=== PATIENT | female | born 1990 | race Caucasian/White ===

== ENCOUNTER 2017-10-24 23:24 | Inpatient (IN) | payer OTHER ==
[~2017-10-24] VITALS: Ht 160 cm; Wt 72.6 kg
[~2017-10-24 23:24] MED LIST: CITA-128 PO
[2017-10-24] MEDS ORDERED: FAMOTIDINE(*) 20MG/50ML PREMIX 50 ML IVPB PRN (23:25)
[2017-10-24] MEDS ORDERED: LIDOCAINE/SOD BICARB 8.4% SYR SC PRN (23:25)
[2017-10-24] MEDS ORDERED: ONDANSETRON 4 MG/2 ML VIAL IVP PRN (23:25)
[2017-10-24] MEDS ORDERED: cefOXitin/DEX(*) 2GM/50ML PREM 50 ML IVPB PRN (23:25)
[2017-10-24] MEDS ORDERED: LIDOCAINE 1% LOCAL 300 MG/30ML INJ PRN (23:25)
[2017-10-24] MEDS ORDERED: OXYTOCIN 30 UNIT/D5LR 500 ML 500 ML IV PRN (23:25)
[2017-10-24] MEDS ORDERED: DLR(*) 1000 ML BAG 1,000 ML IV PRN (23:25)
[2017-10-24] MEDS ORDERED: METOCLOPRAMIDE 10 MG/2 ML SDV IVP PRN (23:25)
[2017-10-25] VITALS (10 sets, daily range): BP systolic 90–119; BP diastolic 50–84; BMI 28.3
[2017-10-25 00:09] LABS: PLATELET COUNT, AUTOMATED 214 K/uL (150-450)
[2017-10-25] MEDS ORDERED: FAMO20TA28 PO (04:56)
[2017-10-25] MEDS ORDERED: PREN-127 PO (04:56)
[2017-10-25] MEDS: LR(*) 1000 ML BAG 1,000 ML IV PRN ×3 (06:51→13:05)
[2017-10-25] MEDS ORDERED: OXYTOCIN 30 UNIT/D5LR 500 ML 500 ML IV PRN ×2 (07:24→16:59)
[2017-10-25] MEDS ORDERED: TERBUTALINE SULF 1 MG/ML VIAL SUBQ PRN (07:25)
[2017-10-25] MEDS ORDERED: LIDOCAINE/PF 2% 200MG/10ML AMP 200 MG/10 ML AMPUL EPI PRN (07:30)
[2017-10-25] MEDS ORDERED: fentaNYL CITR 100 MCG/2 ML AMP IT PRN (07:30)
[2017-10-25] MEDS ORDERED: LIDO/EPI 2% MPF 1:200,000 20ML EPI PRN (07:30)
[2017-10-25] MEDS ORDERED: BUPIVACAINE 0.5% INJ 30ML VIAL EPI PRN (07:30)
[2017-10-25] MEDS ORDERED: FENTANYL/ROPIVACAINE 100 ML BAG EPI PRN (07:30)
[2017-10-25] MEDS ORDERED: BUPIVACAINE 0.25% MPF INJ EPI PRN (07:30)
[2017-10-25] MEDS ORDERED: EPIDURAL KEYS XX PRN (09:00)
[2017-10-25] MEDS: fentaNYL CITR 100 MCG/2 ML AMP IVP PRN ×2 (10:33→11:41)
[2017-10-25] MEDS ORDERED: NS(*) 0.9% 1000 ML BAG 1,000 ML ONE (10:36)
[2017-10-25] MEDS ORDERED: TERBUTALINE SULF 1 MG/ML VIAL ONE (13:34)
--- NOTE | 2017-10-25 13:47 | History & Physical ---
History of Present Illness Age of Patient: 27 : 2 Para or TPAL: 0 EDC per LMP: Oct 25, 2017 Estimated Gestational Age: 39 Chief Complaint loss of fluid History of Present Illness Presented with SROM last night and was 2 cm. Progressed to 4 cm by this am but contractions spaced out. Starting pitocin upon my arrival. uncomplicated. Past Medical, Surgical, Family and Obstetric Histories reviewed. Please see ACOG chart. History Obstetrical History: one prior SAB Allergies: Coded Allergies: No Known Allergies (Verified Allergy, Mild, 08/13/08) Med Rec Home Meds Reported Medications Famotidine (PEPCID) 20 Mg Tablet, 20 MG PO QDAY, #10 TAB 10/25/17 Vits W-Ca,Fe,Fa(<1MG) ( VITAMINS) 1 Each Tablet, 1 EACH PO DAILY, TAB 10/25/17 Discontinued Reported Medications Citalopram Hydrobromide (Citalopram Hbr) 20 Mg Tablet, 10 MG PO DAILY, 0 Refills 08/13/08 Review of Systems All Systems Reviewed/Normal: Yes, Except as Noted Exam General Exam Vital Signs Vital Signs Date Time Temp Pulse Resp B/P (MAP) Pulse Ox O2 Delivery O2 Flow Rate FiO2 10/25/17 00:00 98.1 67 16 115/77 (90) 94 Room Air General Apperance: Alert/Awake/No Acute Distress Eyes: Normal Extraocular Movement & Vison Cardiovascular: Regular Rate and Rhythm Respiratory: No Respiratory Distress Abdomen: Soft, Non-Tender, Non-Distended, Gravid - Non-Tender Psychological: Alert & Oriented X3, Appropriate Mood & Affect Cervical Dialation: 4 Cervical Effacement (%): 80 Cervical Consistency: Soft Cervical Position: Anterior Station: -2 Presentation: Vertex Fetus Heart Tone Variabilty: Moderate FHT Category: I Medical Decision Making Data Points Result Diagram: 10/24/17 0000 VTE Prophylasis: Adult Deep Vein Thrombosis/Pulmonary: No Pharmacological Contraindicati: Pt at Low Risk for VTE Mechanical Contraindications: Pt at Low Risk for VTE 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 Will augment with Pitocin BRODY TERAN MD Oct 25, 2017 13:47
--- NOTE | 2017-10-25 13:51 | Labor Progress Note ---
Labor Subjective Progress Notes Subjective Pt was having moderate variable decelerations with contraction, variable type. I placed IUPC and started amnioinfusion to help resolve. It wasn't helping but contractions intense and epidural placed. Variable decelerations seemed to worsen after and descent and 7 cm dilation, 0 station. Position changes, O2 and Pitocin stopped. Ultimately terbutaline given and contractions stopped and FHTs improved. All the while palpable movement and accelerations noted with scalp stim. Labor Objective Vital Signs Vital Signs Date Time Temp Pulse Resp B/P (MAP) Pulse Ox O2 Delivery O2 Flow Rate FiO2 10/25/17 00:00 98.1 67 16 115/77 (90) 94 Room Air Other Result Diagram: 10/24/17 0000 Assessment and Plan Problems: (1) Labor without complication Assessment & Plan: Ultimately decided on plan for continued waiting without stimulation and see if severe variables happen again with spontaneous contractions. If so, she is only 7 cm and will need abdominal delivery. They are in agreement with this plan. BRODY TERAN MD Oct 25, 2017 13:51
[2017-10-25] MEDS ORDERED: OXYTOCIN 10 UNIT/ML SDV ONE ×2 (15:57→15:58)
[2017-10-25] MEDS ORDERED: MORPHINE PF 5 MG/10 ML AMP ONE (15:57)
[2017-10-25] MEDS ORDERED: KETAMINE HCL 500 MG/5 ML VIAL ONE (16:12)
[2017-10-25] MEDS ORDERED: DLR(*) 1000 ML BAG 1,000 ML IV PRN (16:59)
[2017-10-25] MEDS ORDERED: ONDANSETRON 4 MG/2 ML VIAL IV PRN (17:00)
[2017-10-25] MEDS ORDERED: PROMETHAZINE 25 MG/ML 1 ML AMP IVP PRN (17:00)
[2017-10-25] MEDS ORDERED: ACETAMINOPHEN 325 MG TAB PO PRN (17:00)
[2017-10-25] MEDS ORDERED: ZOLPIDEM TARTRATE 5 MG TAB PO PRN (17:00)
[2017-10-25] MEDS ORDERED: LANOLIN OINT 7 GM TUBE TP PRN (17:00)
[2017-10-25] MEDS ORDERED: SIMETHICONE 80 MG CHEW CHEW PRN (17:00)
--- NOTE | 2017-10-25 17:10 | Post Operative Note ---
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
[2017-10-25] MEDS ORDERED: cefOXitin/DEX(*) 2GM/50ML PREM 50 ML IVPB PRN (17:15)
--- NOTE | 2017-10-25 17:46 | Anesthesia OB Pre-Anes Eval ---
History of Present Illness Anesthesia Start Date: Oct 25, 2017 Anesthesia Start Time: 12:10 OB Anesthesia Diagnosis: spontaneous ROM Complications: None known EDC: Oct 25, 2017 : 2 Para: 0 Vital Signs: Vital Signs Date Time Temp Pulse Resp B/P (MAP) Pulse Ox O2 Delivery O2 Flow Rate FiO2 10/25/17 17:31 18 90/58 (69) 91 Room Air 10/25/17 17:20 98.6 10/25/17 17:10 83 Pain Ratin Heart Tones: Decels with contractions. 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 Hx Anesthesia Reactions: No Hx Family Anesthesia Reaction: No Current Medications: pitocin, pain medication Home Meds Reported Medications Famotidine (PEPCID) 20 Mg Tablet, 20 MG PO QDAY, #10 TAB 10/25/17 Vits W-Ca,Fe,Fa(<1MG) ( VITAMINS) 1 Each Tablet, 1 EACH PO DAILY, TAB 10/25/17 Discontinued Reported Medications Citalopram Hydrobromide (Citalopram Hbr) 20 Mg Tablet, 10 MG PO DAILY, 0 Refills 08/13/08 Allergies: Coded Allergies: No Known Allergies (Verified Allergy, Mild, 08/13/08) Anesthesia OB ROS Neurological: other, No migraines/headaches, No seizures, No neuropathy Eyes ROS: contacts in Contacts Statement: Patient agrees to continued use of contacts if general anesthesia is required. ENT: Denies Tooth caps, Denies Loose teeth, Denies Chipped teeth, Denies Dentures, Denies Bridges, Denies Retainers, Denies Veneers, Denies Implants, Denies Tongue ring Pulmonary: No asthma, No smoker (pks/day/yrs) Airway Class: ll Cardiovascular ROS: No edema, No arrhythmia GI ROS: clear liquids Last Solids Date: Oct 24, 2017 Last Solids Time: 22:00 ROS: No Herpes, No STD(s), No Liver Disease, No Renal Disease Endocrine ROS: No diabetes, No gestational diabetes, No thyroid disorder Musculoskeletal ROS: No low back pain, No low back injury, No scoliosis ASA Classification: 2 Assessment and Plan Anesthesia Plan: CSE Assessment Past Medical, Surgical, Family and Obstetric Histories reviewed. Please see ACOG chart. Epidural anesthesia risks, complications and benefits explained to patient's satisfaction for labor and vaginal delivery and/or section. General anesthesia risks and benefits explained to patient's satisfaction. Questions invited, none asked. ABELINO MEYERS CRNA Oct 25, 2017 17:46
--- NOTE | 2017-10-25 17:49 | Procedure Note ---
Anesthetic Placement Note Anesthesia Plan: CSE Permit for Anesthesia Signed: Yes Anesthesia Technique: Patient Sitting Anesthesia Prep: Chlorhexidine Interspace: L 3-4 Local Anesthetic: 1% Lidocaine Amount Local - cc's: 2 Anesthesia Needle: 17g Touhy/Schliff Anesthesia Attempts: 1 Loss of Resistance: Air Depth of LOS (cm): 4 Epidural Needle Placement: No CSF, No Blood, No Parasthesia Intrathecal Needle: 27 Gauge Pencan Cerebral Spinal Fluid: Yes, Clear Catheter Insertion (cm): 7 Catheter Type: Romero - Spring Wound Epidural Dressing: Tegaderm, Tape, Adhesive [place] Anesthesia Tray: Lot Number ([id number]), Expiration Date (2018-06-10), Reference Number ([id number]) Anesthesia Medications: Intrathecal Dose: mcg Fentanyl (15), mg Marcaine MPF (1.75), Time (1225) Epidural Test Dose: 1.5 Lido/Epi (1:200,000), Dose - mL (2), Time (1242), Negative Epidural Loading Dose: 0.2% Ropivicaine, With Fentanyl 2mcg/ml, Dose - ml (5), Time (1243) Epidural Infusion: 0.2% Ropivicaine, With Fentanyl 2mcg/ml, Start Time: (1243) Epidural Pump Setting: Bolus Dose - mL (5), Lockout - Minutes (20), Maintenance Rate - mL/hr (6), Maximum per Hour - mL (21) Complications: None Comment: Vital signs stable. Patient comfortable and condition stable. ABELINO MEYERS CRNA Oct 25, 2017 17:49
--- NOTE | 2017-10-25 17:53 | Anesthesia Progress Note ---
Progress/Maintenance Anesthesia Note Date: Oct 25, 2017 Anesthesia Note Time: 15:15 Pain Intensity: 0 Pump: Off Sensory Level: T-12 Motor Level: Bending Knees-Bilateral Dilatation: 5 Position: Left, Tilt Drug Bolus: Other Assessment and Plan Assessment Status changing to C/section due to intolerance of labor. Dosing epidural with 2% Lidocaine with Epi. in 5 ml increments. Anesthesia Stop Day: Oct 25, 2017 Anesthesia Stop Time: 17:00 Epidural Catheter Removal: Removed Catheter Intact, Yes, Removed by: (Juno Acevedo CRNA) Removal Date: Oct 25, 2017 Removal Time: 16:45 ABELINO ACEVEDO CRNA Oct 25, 2017 17:53
[2017-10-25] MEDS ORDERED: ONDANSETRON 4 MG/2 ML VIAL IVP PRN (17:55)
[2017-10-25] MEDS ORDERED: NALOXONE HCL 0.4 MG/ML VIAL IV PRN (17:55)
[2017-10-25] MEDS: NALBUPHINE HCL 10 MG/ML AMP IVP PRN (19:27)
[2017-10-25] MEDS: DOCUSATE CALCIUM 240 MG CAP PO SCH (21:16)
[2017-10-25] MEDS: FAMOTIDINE 20 MG TAB PO SCH (21:16)
[2017-10-25] MEDS: KETOROLAC 30 MG/ML VIAL IVP SCH (23:15)
[2017-10-26] VITALS: BP 98/54
[2017-10-26] MEDS: KETOROLAC 30 MG/ML VIAL IVP SCH ×2 (04:45→11:35)
[2017-10-26 05:00] VITALS: BP 90/48
[2017-10-26] MEDS: NALBUPHINE HCL 10 MG/ML AMP IVP PRN (05:17)
[2017-10-26 07:28] LABS: PLATELET COUNT, AUTOMATED 181 K/uL (150-450)
[2017-10-26 07:45] VITALS: BP 97/50
--- NOTE | 2017-10-26 07:52 | OB/GYN Progress Note ---
OB Subjective Progress Notes Subjective Doing well. Pain controlled and tolerating regular diet. GI: NEG Nausea Pain: Mild OB Objective Physical Exam Vital Signs Date Time Temp Pulse Resp B/P (MAP) Pulse Ox O2 Delivery O2 Flow Rate FiO2 10/26/17 06:00 Nasal Cannula 1.0 10/26/17 05:00 91 10/26/17 05:00 97.6 71 10/26/17 00:00 16 General Appearance: Alert/Awake/No Acute Distress Eyes: Normal Extraocular Movement & Vison Cardiovascular: Normal Rhythm & Peripheral Pulses, Regular Rate and Rhythm Respiratory: No Respiratory Distress, Clear to Auscultation Abdomen: Soft, Non-Tender, Non-Distended, Fundus Firm Incision: Clean, Dry, Intact Integumentary: Skin Intact without Lesions or Rash Psychological: Alert & Oriented X3, Appropriate Mood & Affect Result Diagram: 10/26/17 0645 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 Lebron out this late afternoon or evening. May shower then. BRODY TERAN MD Oct 26, 2017 07:52
[2017-10-26] MEDS: FAMOTIDINE 20 MG TAB PO SCH ×2 (09:19→21:26)
[2017-10-26] MEDS: DOCUSATE CALCIUM 240 MG CAP PO SCH ×2 (09:19→21:26)
[2017-10-26] MEDS: POLYETHYLENE GLYCOL 17 GM PKT PO SCH (09:19)
[2017-10-26 13:50] VITALS: BP 107/57
--- NOTE | 2017-10-26 16:40 | OPERATIVE REPORT 1 ---
EVENT DATE: October 25, 2017 SURGEON: Zan Springer MD ANESTHESIA: Spinal, Linda Acevedo, XIAO PREOPERATIVE DIAGNOSES 1. A 40-week intrauterine in normal labor. 2. intolerance to labor with severe variable decelerations. POSTOPERATIVE DIAGNOSES 1. A 40-week intrauterine in normal labor. 2. intolerance to labor with severe variable decelerations. 3. Tight nuchal cord. PROCEDURE PERFORMED Primary low transverse section via Pfannenstiel skin incision. ESTIMATED BLOOD LOSS 750 mL FLUIDS Crystalloid 1700 mL IV. URINE OUTPUT 50 ML FINDINGS Male infant, cephalic. Tight nuchal cord times one with some difficulty reducing it. Normal-appearing uterus, tubes, and ovaries. PROCEDURE IN DETAIL The patient had been having severe variable decelerations, responsive to initial interventions. It was finally managed by discontinuing Pitocin stimulation and relaxing the uterus with terbutaline. However, variable decelerations persisted with any contractions she had following. A long discussion was had with the patient and her on the pros and the cons of her two options of continuing to try to manage labor at 7 cm, which would require more stimulating the contractions and increasing the strength and by all appearances would result in recurrence of severe variable decelerations, and then we could not predict how long the infant would tolerate this. Alternatively, proceeding with abdominal delivery was reviewed as far as all of its associated risks and benefits. The patient and her discussed and elected to proceed with an abdominal delivery. The patient had an epidural in place. She was brought to the operating suite while it was brought to surgical levels. She was placed in the dorsal supine position with a leftward tilt and prepped and draped in the usual sterile fashion. Using a knife, a Pfannenstiel skin incision was made and carried through to the underlying rectus fascia. This was nicked in the midline and extended laterally. The rectus muscles were dissected off the fascia using sharp dissection superiorly and inferiorly and then in the midline. The peritoneum was entered sharply, and this was extended superiorly and inferiorly taking care to avoid injury to the underlying bladder and uterine structures. This was put on lateral stretch. The bladder blade was inserted. The exposed vesicouterine peritoneum was entered sharply and extended laterally. A bladder flap was created digitally and pushed down. The bladder blade was reinserted here exposing the lower uterine segment. Using a knife, a low transverse incision was made on the uterus and carried through to the intra- amniotic space. There was clear fluid upon entering, although scant. The incision was extended laterally. A hand was inserted, and the 's head was elevated to the incision. Fundal pressure was applied, and the 's head delivered. The mouth and nose were bulb suctioned. It was then that a nuchal cord was encountered. Attempts were made to reduce it, and as it had a tight hold on the infant, these were unsuccessful. I had to partially push the infant's head back into the abdomen in order to get enough slack to remove the nuchal cord. Once removed, the remainder of the infant delivered without difficulty. Mouth and nose were, again, bulb suctioned. The cord was clamped and cut, and the infant was passed to the awaiting resuscitation team. A cord sample was obtained. The placenta was delivered manually. The uterus was exteriorized and cleared of all clots and debris. The uterine repair was performed with a #1 Monocryl in a running locking stitch. A second suture of the same type was used to imbricate the first layer, completing a two-layer closure. This was hemostatic upon completion. The posterior cul-de-sac was irrigated and swept clear of clots and debris. The uterus was returned to the abdomen, and bilateral pelvic gutters were irrigated and swept clear of clots and debris. On final inspection, the incision was hemostatic; therefore, the parietal peritoneum was repaired using 3-0 Vicryl in a running nonlocking stitch. The rectus muscles were reapproximated in the midline with the same stitch. A few capillary bleeders were cauterized. The rectus fascia was repaired using an 0 Vicryl in a running nonlocking stitch. The subcuticular space was then irrigated and swept clear of all clots and debris. Cautery was applied for hemostasis. The space was closed with a 3-0 Vicryl Plus in a running nonlocking stitch. The skin was repaired with a 4-0 Monocryl simple subdermal and covered with Dermabond skin adhesive. She tolerated the procedure well. Sponge, lap, needle, and instrument counts were all correct times three. She was taken to recovery in stable condition. HA[place]
[2017-10-26] MEDS: IBUPROFEN 800 MG TAB PO SCH (17:28)
[2017-10-26 23:20] VITALS: BP 109/53
[2017-10-27] MEDS: IBUPROFEN 800 MG TAB PO SCH ×2 (01:38→09:00)
[2017-10-27 09:00] VITALS: BP 113/62
[2017-10-27] MEDS: POLYETHYLENE GLYCOL 17 GM PKT PO SCH (09:00)
[2017-10-27] MEDS ORDERED: DIPHTH/TETANUS/ACEL. PERTUSSIS IM ONLY ONE (09:00)
[2017-10-27] MEDS: DOCUSATE CALCIUM 240 MG CAP PO SCH (09:00)
[2017-10-27] MEDS: FAMOTIDINE 20 MG TAB PO SCH (09:00)
[2017-10-27] MEDS ORDERED: INFLUENZA VIRUS VAC 0.5 ML SYR IM ONLY ONE (09:00)
[2017-10-27] MEDS ORDERED: MEASLES,MUMP,RUBELLA VAC 0.5ML SUBQ ONE (09:00)
--- NOTE | 2017-10-27 09:15 | OB/GYN Progress Note ---
OB Subjective Progress Notes Subjective Doing good this morning. Tolerating regular diet. Ambulatory. Voiding with out any difficulty. . Desires to be discharged home. GI: NEG Nausea, NEG Vomiting, NEG Flatus, NEG Bowel Movement : Voiding Well, Vaginal Bleeding, Moderate Pain: Mild, Tolerating PO Pain Meds Neurological: No Headache, No Other Eyes: No Visual Disturbances OB Objective Physical Exam Vital Signs Date Time Temp Pulse Resp B/P (MAP) Pulse Ox O2 Delivery O2 Flow Rate FiO2 10/26/17 23:20 97.9 67 16 109/53 (71) 10/26/17 13:50 92 Room Air 10/26/17 07:45 0.5 General Appearance: Alert/Awake/No Acute Distress Eyes: Normal Extraocular Movement & Vison Cardiovascular: Normal Rhythm & Peripheral Pulses, Regular Rate and Rhythm Respiratory: No Respiratory Distress, Clear to Auscultation Abdomen: Soft, Non-Tender, Non-Distended, Fundus Firm Incision: Clean, Dry, Intact, Dermabond : Normal Musculoskeletal: No Weakness/Pain Extremities: No Cyanosis,Clubbing or Edema Integumentary: Skin Intact without Lesions or Rash Psychological: Alert & Oriented X3, Appropriate Mood & Affect Result Diagram: 10/26/17 0645 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 Follow up in [address] Springer. IDA SARAVIA DO Oct 27, 2017 09:15
[2017-10-27] MEDS ORDERED: IBUP800T37 PO (09:16)
[2017-10-27] MEDS ORDERED: PER PO (09:16)
--- NOTE | 2017-10-27 09:19 | OB/GYN Discharge Summary ---
Discharge Summary Reason for Hosp/Final Diag: (1) Labor without complication (2) Status post delivery Hospital Course & Plan: Came to L&D with a complaint of loss of amniotic fluid. Was noted to be grossly ruptured. Pt eventually required oxytocin to get adequate contractions but multiple variables were noted. Pt was taken to the OR, see operative report. Pt remained in the hospital for 2 days post . Desired to be discharged home on day 2. L[place] Vital Signs Vital Signs Date Time Temp Pulse Resp B/P (MAP) Pulse Ox O2 Delivery O2 Flow Rate FiO2 10/26/17 23:20 97.9 67 16 109/53 (71) 10/26/17 13:50 92 Room Air 10/26/17 07:45 0.5 Weight (Pounds): 160 Result Diagram: 10/26/17 0645 Condition: Improved Discharge: Home Home Meds Active Scripts Ibuprofen (IBUPROFEN) 800 Mg Tablet, 800 MG PO Q8H, #30 TAB 0 Refills Prov:IDA SARAVIA DO 10/27/17 Oxycodone/Acetaminophen (OXYCODONE/ACETAMINOPHEN 5MG/325 MG) 5 Mg/325 Mg Tab, 1- 2 TAB PO Q4H Y for PAIN, #40 TAB 0 Refills Prov:IDA SARAVIA DO 10/27/17 Reported Medications Famotidine (PEPCID) 20 Mg Tablet, 20 MG PO QDAY, #10 TAB 10/25/17 Vits W-Ca,Fe,Fa(<1MG) ( VITAMINS) 1 Each Tablet, 1 EACH PO DAILY, TAB 10/25/17 Discontinued Reported Medications Citalopram Hydrobromide (Citalopram Hbr) 20 Mg Tablet, 10 MG PO DAILY, 0 Refills 08/13/08 [facility] [phone], Dr. Saravia [phone] Follow up in: 6 wks PP or PO, 2 wks PO Discharge Diet: As Tolerates, Resume Prior Admit Diet, Increase Fluid Intake Discharge Activity: As Tolerates, Pelvic Rest IDA SARAVIA DO Oct 27, 2017 09:18
[2017-10-27 10:17] VITALS: Ht 160 cm; Wt 72.6 kg
--- NOTE | 2017-10-27 12:34 | Anesthesia Post Eval Note ---
Anesthesia Post Eval Note Vital Signs Date Time Temp Pulse Resp B/P (MAP) Pulse Ox O2 Delivery O2 Flow Rate FiO2 10/27/17 09:00 97.9 15 113/62 (79) 96 Room Air 10/26/17 23:20 67 10/26/17 07:45 0.5 Pt able to participate in Eval: Yes Cardiovascular Status: Satisfactory Respiratory Status: Satisfactory Pain Managment: Satisfactory PO Nausea/Vomiting: Satisfactory Temperature Management: Satisfactory Mental Status: Satisfactory, Alert, Oriented X3 Post-Op Hydration Status: Satisfactory, Tolerating PO Well, Voiding w/o Difficulty Anesthesia Type: CSE Anesthesia Tolerance: Tolerated procedure well without apparent anesthetic complications. LP site clear, no redness or edema. Denies headache or any residual paresthesia. Vital Signs Stable, Patient comfortable and condition stable. ABELINO MEYERS CRNA Oct 27, 2017 12:34
[2017-10-27 13:07] VITALS: BP 110/63
== END 2017-10-27 14:25 | disposition home or self-care (01) | DRG 765 ==
LOC: OBSVTOIN 23:24 → OB 23:24 → PED 10-25 18:28
PROVIDERS: ADMIT Obstetrics & Gynecology; ATTEND Obstetrics & Gynecology
PROC: 10H07YZ Insertion of Other Device into Products of Conception, Via Natural or Artificial Opening (ICD-10-PCS; 2017-10-25)
PROC: 4A1H74Z Monitoring of Products of Conception, Cardiac Electrical Activity, Via Natural or Artificial Opening (ICD-10-PCS; 2017-10-25)
PROC: 3E0E7GC Introduction of Other Therapeutic Substance into Products of Conception, Via Natural or Artificial Opening (ICD-10-PCS; 2017-10-25)
PROC: 10D00Z1 Extraction of Products of Conception, Low, Open Approach (ICD-10-PCS; principal; 2017-10-25 15:45)
PROC: 3E0334Z Introduction of Serum, Toxoid and Vaccine into Peripheral Vein, Percutaneous Approach (ICD-10-PCS; 2017-10-26)
DX: O69.1XX0 Labor and delivery complicated by cord around neck, with compression, not applicable or unspecified (principal); O36.0130 Maternal care for anti-D [Rh] antibodies, third trimester, not applicable or unspecified; O76 Abnormality in fetal heart rate and rhythm complicating labor and delivery; Z3A.40 40 weeks gestation of pregnancy; Z37.0 Single live birth
CPT/HCPCS: 36415; 85025; 85461; 86850; 86870; 86900; 86901; J0694; J1885; J2270; J2300; J2405; J2590; J2791; J3010; J3105; J3490; J7030; J7120; S0020

== ENCOUNTER → 2018-10-12 | Outpatient (CLI) | payer OTHER ==
[2017-10-27 10:17] VITALS: BMI 28.3
[~2018-10-12] MED LIST changes: +FAMO20TA28 PO; +GADOBENATE 529MG/1ML 15ML VIAL IVP ONE; +IBUP800T37 PO; +PER PO; +PREN-127 PO
--- NOTE | 2018-10-12 13:45 | RADIOLOGY IMAGING REPORT ---
FACILITY: [facility] PATIENT NAME: Em Taylor : 1990 MR: [id number] V: [id number] EXAM DATE: ORDERING PHYSICIAN: KAI CLIFTON TECHNOLOGIST: Location: [facility] - [place] Patient: Em Taylor : 1990 Visit/Account:[id number] Date of Sevice: 10/12/2018 Examination: MR brain without and with contrast History: Vision loss, headache Comparison: None Technique: Multiplane MR imaging was performed through the brain without and with contrast. 11 cc IV multihance was administered. Findings: Diffusion: None Ventricles: Normal Midline shift: None Extraxial fluid: None Midline craniocervical structures: Normal Parenchyma: Normal Enhancement: No pathologic enhancement Vascular flow voids: Normal Orbits and paranasal sinuses: Normal Other: No significant additional finding. Impression: Normal brain MR without and with contrast. Report Dictated By: Mike Watson MD at 10/12/2018 1:36 PM Report E-Signed By: Mike Watson MD at 10/12/2018 1:40 PM [id number]
== END ==
LOC: MRI 00:17
PROVIDERS: ATTEND Physician Assistant
DX: R55 Syncope and collapse (principal); R00.2 Palpitations; H53.10 Unspecified subjective visual disturbances
CPT/HCPCS: 70553; A9577

== ENCOUNTER → 2018-12-26 | Outpatient (CLI) | payer OTHER ==
[2017-10-27 10:17] VITALS: BMI 28.3
[~2018-12-26] MED LIST changes: -GADOBENATE 529MG/1ML 15ML VIAL IVP ONE
--- NOTE | 2018-12-26 11:18 | RADIOLOGY IMAGING REPORT ---
FACILITY: [facility] PATIENT NAME: Em Taylor : 1990 MR: [id number] V: [id number] EXAM DATE: ORDERING PHYSICIAN: AUBREE JOHNSON TECHNOLOGIST: Location: [facility] - [place] Patient: Em Taylor : 1990 Visit/Account:[id number] Date of Sevice: 12/26/2018 Chest with lateral, two views. HISTORY: Cough. COMPARISON: None. The heart and mediastinum are unremarkable. Pulmonary vessels are unremarkable. The lungs are volum inous. The pleural surfaces are unremarkable. No pneumothorax. No acute bony abnormalities. The upp er trachea is deviated to the right probably due to rotation of the patient's head. IMPRESSION: Voluminous lungs suggesting a deep inspiration or reactive airway disease. Otherwise no evidence of acute cardiopulmonary. Report Dictated By: Zachary Mishra MD at 12/26/2018 11:12 AM Report E-Signed By: Zachary Mishra MD at 12/26/2018 11:13 AM WSN:[id number]
== END ==
LOC: RAD 10:40
PROVIDERS: ATTEND Nurse Practitioner Family
DX: R05 Cough (principal)
CPT/HCPCS: 71046